=== PATIENT | female | born 1990 | race Caucasian/White ===

== ENCOUNTER 2020-09-21 23:56 | Inpatient (IN) | payer BC ==
[~2020-09-21] VITALS: Ht 162.6 cm; Wt 117.7 kg
[2020-09-22] MEDS ORDERED: TERBUTALINE 1 MG/ML, 1ML IVPush PRN (07:30)
[2020-09-22] MEDS ORDERED: SODIUM CHLORIDE FLUSH 10ML SYR IVF PRN (07:30)
[2020-09-22] MEDS ORDERED: FENTANYL PF 100 MCG/2ML IV PRN (07:30)
[2020-09-22] MEDS ORDERED: SODIUM CITRATE/CITRIC ACID 30 ML UDC PO PRN (07:30)
[2020-09-22] MEDS ORDERED: MISOPROSTOL 25 MCG TABLET VG PRN (07:30)
[2020-09-22] MEDS ORDERED: OXYTOCIN 30U/ 0.9% NaCL 500ML 500 ML IV ONE (07:30)
[2020-09-22] MEDS ORDERED: TERBUTALINE 1 MG/ML, 1ML SQ PRN (07:30)
[2020-09-22] MEDS ORDERED: D5%-LACTATED RINGERS 1,000 ML IV SCH (07:30)
[2020-09-22] MEDS ORDERED: ONDANSETRON 2MG/ML, 2ML IVPush PRN (07:30)
[2020-09-22] MEDS ORDERED: OXYTOCIN 30U/ 0.9% NaCL 500ML 500 ML IV PRN (07:30)
[2020-09-22] MEDS ORDERED: METOCLOPRAMIDE 5 MG/ML, 2ML IVPush PRN (07:30)
[2020-09-22 07:54] LABS: BASOPHILS % (AUTO) 1 % (0-1); EOSINOPHILS % (AUTO) 2 % (1-7); LYMPHOCYTES % (AUTO) 18 % (22-44); MEAN CORPUSCULAR HEMOGLOBIN 31.8 pg (27.0-34.8); MEAN CORPUSCULAR HGB CONC 34.1 g/dL (32.4-35.8); MEAN PLATELET VOLUME 9.9 fL (7.4-10.4); MONOCYTES % (AUTO) 5 % (2-9); NEUTROPHILS % (AUTO) 76 % (42-75); PLATELET COUNT 174 x10^3/uL (130-400); RED BLOOD COUNT 4.02 x10^6/uL (3.82-5.3); RED CELL DISTRIBUTION WIDTH 14.6 % (9.6-15.2)
[2020-09-22] MEDS ORDERED: NEWBORN KIT ONE (07:56)
[2020-09-22] MEDS ORDERED: MISOPROSTOL 200 MCG TABLET ONE (07:57)
[2020-09-22] MEDS ORDERED: LIDOCAINE 1%, 20ML ONE (07:57)
[2020-09-22 08:13] VITALS: BP 119/74
[2020-09-22] MEDS: LACTATED RINGERS 1,000 ML IV SCH (12:26)
[2020-09-22] MEDS: FENTANYL PF 100 MCG/2ML IVPush PRN ×2 (15:46→17:55)
[2020-09-22] MEDS ORDERED: FENTANYL/BUPIV./NS/PF 250 ML EPIDCONT ONE (18:37)
[2020-09-22] MEDS ORDERED: BUPIVACAINE 0.25% ONE (18:37)
[2020-09-22] MEDS ORDERED: FENTANYL/BUPIV./NS/PF 250 ML EPIDCONT SCH (19:30)
[2020-09-22] MEDS ORDERED: LACTATED RINGERS 1,000 ML IV SCH (19:30)
[2020-09-22] MEDS ORDERED: EPHEDRINE 50 MG/ML, 1ML IVPush PRN (19:30)
[2020-09-22] MEDS ORDERED: LACTATED RINGERS 1,000 ML IVBOLUS PRN (19:30)
[2020-09-22] MEDS ORDERED: ACETAMINOPHEN 325 MG TABLET PO PRN (23:30)
[2020-09-23] MEDS ORDERED: BUPIVACAINE 0.25% ONE ×2 (01:51→05:49)
[2020-09-23] MEDS: LACTATED RINGERS 1,000 ML IV SCH (06:09)
[2020-09-23] MEDS ORDERED: SODIUM CITRATE/CITRIC ACID 15 ML UDC ONE (07:06)
[2020-09-23] MEDS ORDERED: MAGNESIUM HYDROXIDE 8%, 30ML UDC PO PRN (10:30)
[2020-09-23] MEDS ORDERED: ACETAMINOPHEN 325 MG TABLET PO PRN ×2 (10:30)
[2020-09-23] MEDS ORDERED: SIMETHICONE 80 MG CHEW TAB PO PRN (10:30)
[2020-09-23] MEDS ORDERED: RHOGAM FROM BLOOD BANK 1 NOTE EA IM/IV ONE (10:30)
[2020-09-23] MEDS ORDERED: OXYcodone/APAP 5/325MG TABLET PO PRN (10:30)
[2020-09-23] MEDS ORDERED: DOCUSATE 100 MG CAPSULE PO PRN (10:30)
[2020-09-23] MEDS ORDERED: DIPH,PERTUSS(ACELL),TET VAC/PF NC IM-VACC PRN (10:30)
[2020-09-23] MEDS ORDERED: MISOPROSTOL 200 MCG TABLET PR PRN (10:30)
[2020-09-23] MEDS ORDERED: ONDANSETRON 2MG/ML, 2ML IV PRN (10:30)
[2020-09-23] MEDS ORDERED: OXYTOCIN 30U/ 0.9% NaCL 500ML 500 ML IV SCH (10:30)
[2020-09-23] MEDS: IBUPROFEN 600 MG TABLET PO PRN ×2 (10:46→21:00)
[2020-09-23 12:30] VITALS: BP 131/69
[2020-09-23] MEDS: OXYcodone/APAP 5/325MG TABLET PO PRN (14:49)
[2020-09-23 16:40] VITALS: BP 103/55
[2020-09-23 19:30] VITALS: BP 106/58
[2020-09-24 01:00] VITALS: BP 114/76
[2020-09-24] MEDS: OXYcodone/APAP 5/325MG TABLET PO PRN (01:35)
[2020-09-24 04:00] VITALS: BP 116/68
[2020-09-24 08:40] VITALS: BP 116/74
[2020-09-24] MEDS: IBUPROFEN 600 MG TABLET PO PRN (08:49)
[2020-09-24] MEDS ORDERED: PRENATAL VIT/IRON/FA 1 EACH TABLET PO SCH (09:00)
[2020-09-24 12:10] VITALS: BP 110/75
[2020-09-24] MEDS ORDERED: IBUP-1222 PO (14:55)
[2020-09-24] MEDS ORDERED: CALCIUM CARBONATE 500 MG TAB.CHEW ONE (15:18)
== END 2020-09-24 16:15 | disposition home or self-care (01) | DRG 806 ==
LOC: LDIP 09-22 07:18 → 2NW 09-23 12:39
PROVIDERS: ADMIT Obstetrics & Gynecology; ATTEND Obstetrics & Gynecology
PROC: 10E0XZZ Delivery of Products of Conception, External Approach (ICD-10-PCS; principal; 2020-09-23)
PROC: 0KQM0ZZ Repair Perineum Muscle, Open Approach (ICD-10-PCS; 2020-09-23)
PROC: 3E0P7VZ Introduction of Hormone into Female Reproductive, Via Natural or Artificial Opening (ICD-10-PCS; 2020-09-23)
PROC: 0U7C7ZZ Dilation of Cervix, Via Natural or Artificial Opening (ICD-10-PCS; 2020-09-23)
PROC: 10907ZC Drainage of Amniotic Fluid, Therapeutic from Products of Conception, Via Natural or Artificial Opening (ICD-10-PCS; 2020-09-23)
PROC: 3E0R3BZ Introduction of Anesthetic Agent into Spinal Canal, Percutaneous Approach (ICD-10-PCS; 2020-09-23)
PROC: 00HU33Z Insertion of Infusion Device into Spinal Canal, Percutaneous Approach (ICD-10-PCS; 2020-09-23)
DX: O69.81X0 Labor and delivery complicated by cord around neck, without compression, not applicable or unspecified (principal); O99.354 Diseases of the nervous system complicating childbirth; Z37.0 Single live birth; O99.214 Obesity complicating childbirth; Z3A.40 40 weeks gestation of pregnancy; Z80.0 Family history of malignant neoplasm of digestive organs; Z80.8 Family history of malignant neoplasm of other organs or systems; Z82.3 Family history of stroke; Z82.49 Family history of ischemic heart disease and other diseases of the circulatory system; Z83.3 Family history of diabetes mellitus; O70.1 Second degree perineal laceration during delivery; Z20.822 Contact with and (suspected) exposure to COVID-19; Z88.2 Allergy status to sulfonamides; Z91.018 Allergy to other foods; G43.909 Migraine, unspecified, not intractable, without status migrainosus
CPT/HCPCS: 36415; 85025; 86592; 86850; 86900; 87635; G0378; J2405; J3010; J2590; J7120